=== PATIENT | female | born 1960 | race Caucasian/White ===

== ENCOUNTER 2021-01-23 15:45 | Inpatient (IN) | payer BC ==
[2021-01-23] VITALS (7 sets, daily range): BP systolic 82–142; BP diastolic 56–91; BMI 17.4
[~2021-01-23] VITALS: Ht 167.6 cm; Wt 49.6 kg
[2021-01-23 16:12] LABS: UDS - AMPHET NEGATIVE QUAL (NEGATIVE); UDS - BARB NEGATIVE QUAL (NEGATIVE); UDS - BENZO POSITIVE QUAL (NEGATIVE); UDS - COCAINE NEGATIVE QUAL (NEGATIVE); UDS - OPIATE POSITIVE QUAL (NEGATIVE); UDS - PCP NEGATIVE QUAL (NEGATIVE); UDS - THC NEGATIVE QUAL (NEGATIVE)
--- NOTE | 2021-01-23 16:12 | NUR ---
PT. CAME IN UNRESPONSIVE--WAS INTUBATED. 7.5 ETT, 24 @ LIP, A/C MODE, RATE OF 18, PEEP 5.0, 50% FIO2, VT 500
[2021-01-23 16:17] LABS: BILIRUBIN NEGATIVE (NEGATIVE); KETONE NEGATIVE (NEGATIVE); NITRITE NEGATIVE (NEGATIVE); UROBILINOGEN NORMAL mg/dL (< 2)
[2021-01-23 16:22] LABS: BASOPHILS 0.1 % (0-2); EOSINOPHILS 0.1 % (0-7); HEMATOCRIT 35.8 % (36.0-48.0); HEMOGLOBIN 12.2 g/dL (12-16); IMMATURE GRANULOCYTES 0.4 % (0-5); LYMPHOCYTE ABS# 0.48 10x3/uL (1.18-3.74); LYMPHOCYTES 7.1 % (15-50); MCH 33.4 pg (26.0-34.0); MCHC 34.1 g/dL (31.0-37.0); MCV 98.1 fL (80.0-100.0); MEAN PLATELET VOLUME 10.5 fL (7.4-10.4); MONOCYTES 7.7 % (2-11); NEUTROPHILS 84.6 % (40-80); PLATELET COUNT 149 10x3/uL (130-400); RBC 3.65 10x6/uL (4.00-5.40); RDW 12.7 % (11.5-14.5); WBC 6.8 10x3/uL (4.8-10.8)
[2021-01-23 16:37] LABS: ALBUMIN 3.7 g/dL (3.4-5.0); ANION GAP 13.9 mmol/L (8-16); BILIRUBIN - TOTAL 0.5 mg/dL (0.2-1.3); CALCIUM 8.4 mg/dL (8.5-10.1); CARBON DIOXIDE 24.2 mmol/L (21.0-32.0); CREATININE - SERUM 0.9 mg/dL (0.6-1.3); MAGNESIUM - SERUM 1.7 mg/dL (1.8-2.4); POTASSIUM - SERUM 3.1 mmol/L (3.5-5.1); PROTEIN - SERUM 6.2 g/dL (6.4-8.2)
--- NOTE | 2021-01-23 17:59 | NUR ---
PROPAFOL AND NS INFUSIONS STOPPED AT 1830 IN ER AND RESUMED IN ICU
[2021-01-23 19:53] LABS: APTT 22.5 SECONDS (22.8-39.4); INR 1.18 (0.85-1.17); PROTIME 13.9 SECONDS (11.6-15.0)
[2021-01-23 20:12] LABS: ACETAMINOPHEN 0.7 ug/mL (10.0-30.0); CKMB 1.7 U/L (0.0-3.6); CREATINE KINASE 47 UL (21-215); THYROID STIMULATING HORMONE 0.01 uIU/mL (0.36-3.74); TROPONIN-I < 0.017 ng/mL (0.000-0.060)
--- NOTE | 2021-01-23 20:21 | NUR ---
Received Pt from the ER, Pt on the vent and vitals are stable. The Pt assessment per flow sheet, will continue to monitor.
[2021-01-23 22:02] LABS: ANION GAP 11.7 mmol/L (8-16); CALCIUM 8.2 mg/dL (8.5-10.1); CARBON DIOXIDE 24.8 mmol/L (21.0-32.0); CREATININE - SERUM 0.9 mg/dL (0.6-1.3); MAGNESIUM - SERUM 1.6 mg/dL (1.8-2.4)
[2021-01-23 22:03] LABS: POTASSIUM - SERUM 2.5 mmol/L (3.5-5.1)
[2021-01-24] VITALS (23 sets, daily range): BP systolic 86–137; BP diastolic 54–100; Ht 167.6 cm; Wt 49.6 kg
[2021-01-24 04:37] LABS: BASOPHILS 0 % (0-2); EOSINOPHILS 0.1 % (0-7); HEMATOCRIT 30.5 % (36.0-48.0); HEMOGLOBIN 10.3 g/dL (12-16); IMMATURE GRANULOCYTES 0.2 % (0-5); LYMPHOCYTE ABS# 0.79 10x3/uL (1.18-3.74); LYMPHOCYTES 8.3 % (15-50); MCH 32.5 pg (26.0-34.0); MCHC 33.8 g/dL (31.0-37.0); MCV 96.2 fL (80.0-100.0); MEAN PLATELET VOLUME 10.5 fL (7.4-10.4); MONOCYTES 8.8 % (2-11); NEUTROPHIL ABS# 7.91 10x3/uL (1.56-6.13); NEUTROPHILS 82.6 % (40-80); RBC 3.17 10x6/uL (4.00-5.40); RDW 12.8 % (11.5-14.5)
[2021-01-24 04:39] LABS: PLATELET COUNT 180 10x3/uL (130-400); WBC 9.6 10x3/uL (4.8-10.8)
[2021-01-24 05:07] LABS: ALKALINE PHOSPHATASE 320 U/L (30-120); BILIRUBIN - TOTAL 0.45 mg/dL (0.2-1.3); CALC OSMOLALITY 288 mosm/kg (275-300); CALCIUM 7.8 mg/dL (8.5-10.1); CARBON DIOXIDE 22.9 mmol/L (21.0-32.0); CREATININE - SERUM 0.8 mg/dL (0.6-1.3); GLUCOSE 87 mg/dL (74-106); PHOSPHOROUS 2.9 mg/dL (2.5-4.9); PROTEIN - SERUM 4.9 g/dL (6.4-8.2); SODIUM 147 mmol/L (136-145); UREA NITROGEN 7 mg/dL (7-18); eGFR NON AFRICAN AMERICAN 77 mL/min (90-120)
[2021-01-24 05:23] LABS: ALBUMIN 2.7 g/dL (3.4-5.0); ALT (SGPT) 139 U/L (10-68); MAGNESIUM - SERUM 2.2 mg/dL (1.8-2.4); POTASSIUM - SERUM 4.1 mmol/L (3.5-5.1)
[2021-01-24 05:24] LABS: CHLORIDE - SERUM 117 mmol/L (98-107)
--- NOTE | 2021-01-24 08:25 | NUR ---
PT ON LIGHT SEDATION. OPENS EYES TO VOICE. DOES NOT FOLLOW COMMANDS. MOVEMENTS OF ARMS, LEGS AND HEAD NOTED. MOVEMENTS DO NOT APPEAR TO BE PURPOSEFULL. WILL CONTINUE TO MONITOR.
--- NOTE | 2021-01-24 08:58 | NUR ---
ANA MARIA MITCHELL PT'S SPOUSE STOPPED BY FOR FEW MINUTES BEFORE HEADING FOR WORK. HE WAS UNALBE TO PROVIDE MEDICATION LIST AT THIS TIME. WILL GET ONE TODAY AND BRING IT IN ON HIS NEXT VISIT.
--- NOTE | 2021-01-24 09:20 | NUR ---
SEDATION PAUSED AT THIS TIME. WILL CONTINUE TO MONITOR.
--- NOTE | 2021-01-24 10:15 | NUR ---
SEDATION TO REMAIN OFF AT THIS TIME PER DR. BRAMBILA. ORDERS RECEIVED FROM DR. BRAMBILA. FLUIDS CHANGED TO D5 NS AT 100ML/HR. PT OPEN EYES BUT DOES NOT FOLLOW COMMANDS. CONTINUES TO HAVE INTERMITTENT TWITCHING OF UPPER AND LOWER EXTREMITIES.
--- NOTE | 2021-01-24 10:24 | NUR ---
DR. LOPEZ PAGED AT THIS TIME. WAITING FOR CALL BACK.
--- NOTE | 2021-01-24 10:38 | NUR ---
DR. LOPEZ AWARE OF CONSULT. WANTS PT TO REMAIN OFF SEDATION AT THIS TIME.
[2021-01-24] MEDS ORDERED: VALIUM10 MG PO (11:04)
[2021-01-24] MEDS ORDERED: SEROQUEL100 MG PO (11:06)
[2021-01-24] MEDS ORDERED: AMBIEN10 MG PO (11:06)
[2021-01-24] MEDS ORDERED: RISPERDAL1 MG PO (11:07)
[2021-01-24] MEDS ORDERED: CYMBALTA60 MG PO (11:07)
[2021-01-24] MEDS ORDERED: ARMOUR THYROID120 MG PO (11:10)
[2021-01-24] MEDS ORDERED: DILAUDID4 MG PO (11:11)
--- NOTE | 2021-01-24 11:12 | NUR ---
LEXA ON [facility] CALLED AND MEDICATION LIST UPDATED.
--- NOTE | 2021-01-24 11:46 | NUR ---
BLOODY DRAINAGE NOTED COMING OUT OF MOUTH. APPEARS THAT PT MIGHT HAVE BITTEN HER TONGUE. ORAL SUCTION PROVIDED. SCANT AMOUNT OF BLOOD SUCTIONED. OGT DRAINAGE CONTINUE TO BE DARK GREEN.
--- NOTE | 2021-01-24 11:49 | NUR ---
DR. SANTIAGO PAGED AT THIS TIME. WAITING FOR CALL BACK.
--- NOTE | 2021-01-24 12:17 | NUR ---
DR. DUNLAP PAGED AGAIN AT THIS TIME.
[2021-01-24 12:38] LABS: FERRITIN 201 ng/mL (3-244)
[2021-01-24] MEDS ORDERED: BUPROPION XL300 MG PO (15:04)
--- NOTE | 2021-01-24 17:40 | NUR ---
PT WOKE UP AFTER ATIVAN DOSE. GOT VERY AGITATED AFTER LAB ATTEMPTED TO DRAW HER BLOOD. PT PULLING ON ARMS. LEGS JERKING ALL OVER THE PLACE. APPEARS TO BE AGITATED OR COULD BE SEIZURE LIKE ACTIVITY. DOES NOT FOLLOW COMMANDS. PULLED OUT PIV. DR. BRAMBILA NOTIFIED. WANTED TO CHECK WITH DR. LOPEZ BEFORE RESTARTING PROPOFOL FOR SEDATION. SPOKE WITH DR. LOPEZ. OKAY TO START PROPOFOL. WANTS SEDATION TO BE TURNED OFF 4HRS BEFORE EEG IN COMPLETED.
--- NOTE | 2021-01-24 20:59 | NUR ---
PT ASSESSED AND HS MEDS GIVEN. PT INTUBATED AND SEDATED ON VENT, 7.5ETT 23@ LIP, OGT TO LIS WITH BROWN/BILE GASTRIC OUTPUT. 22G PIV TO RIGHT WRIST WITH D5NS @100ML/HR AND PROPOFOL INFUSING. PT RESTLESS AT SHIFT CHANGE AND PROPOFOL TITRATED TO 45 MCG/KG/MIN, PT OPENS EYES TO VOICE AND TOUCH, [place], DOES NOT FOLLOW COMMANDS AT THIS TIME. BILAT SOFT WRIST RESTRAINTS IN PLACE AND ASSESSED, RADIAL PULSES STRONG AND RESTRAINTS SECURED. PERSAUD PRESENT WITH DECREASED UOP AND CLEAR YELLOW/SHA URINE. CURTAIN OPEN, WILL CONT TO ASSESS.
[2021-01-25] VITALS (24 sets, daily range): BP systolic 127–176; BP diastolic 77–113
--- NOTE | 2021-01-25 01:43 | NUR ---
CHG AND SOAP AND WATER BED BATH GIVEN, HAIR WASHED, ORAL CARE PREFORMED, FULL LINEN CHANGE AND GOWN CHANGED. PT RESTLESS DURING BATH, AFTER BATH COMPLETED PT CALMED AND PROPOFOL DECREASED TO 35 MCG/KG/MIN, WILL CONT TO TITRATE AND TURN OFF PROPOFOL BY 0400.
--- NOTE | 2021-01-25 03:53 | NUR ---
propofol stopped per MD instruction for EEG today, pt restless at times, restraints secured, will cont to monitor.
[2021-01-25 04:55] LABS: BASOPHILS 0.1 % (0-2); EOSINOPHILS 0.1 % (0-7); HEMOGLOBIN 11.9 g/dL (12-16); IMMATURE GRANULOCYTES 0.3 % (0-5); LYMPHOCYTE ABS# 0.83 10x3/uL (1.18-3.74); LYMPHOCYTES 6.2 % (15-50); MCH 32.6 pg (26.0-34.0); MCHC 33.1 g/dL (31.0-37.0); MEAN PLATELET VOLUME 11.3 fL (7.4-10.4); MONOCYTES 8.3 % (2-11); NEUTROPHIL ABS# 11.44 10x3/uL (1.56-6.13); PLATELET COUNT 202 10x3/uL (130-400); RBC 3.65 10x6/uL (4.00-5.40); RDW 13.4 % (11.5-14.5)
[2021-01-25 05:02] LABS: MCV 98.6 fL (80.0-100.0); WBC 13.5 10x3/uL (4.8-10.8)
[2021-01-25 05:19] LABS: ALBUMIN 2.9 g/dL (3.4-5.0); ALKALINE PHOSPHATASE 324 U/L (30-120); ALT (SGPT) 113 U/L (10-68); BILIRUBIN - DIRECT 0.17 mg/dL (0.00-0.30); BILIRUBIN - INDIRECT 0.27 mg/dL (0.00-1.00); BILIRUBIN - TOTAL 0.44 mg/dL (0.2-1.3); CALC OSMOLALITY 286 mosm/kg (275-300); CALCIUM 8.7 mg/dL (8.5-10.1); CARBON DIOXIDE 22.4 mmol/L (21.0-32.0); CHLORIDE - SERUM 111 mmol/L (98-107); CREATININE - SERUM 0.8 mg/dL (0.6-1.3); GLUCOSE 97 mg/dL (74-106); MAGNESIUM - SERUM 1.8 mg/dL (1.8-2.4); POTASSIUM - SERUM 3.7 mmol/L (3.5-5.1); PROTEIN - SERUM 5.7 g/dL (6.4-8.2); SODIUM 145 mmol/L (136-145); TROPONIN-I < 0.017 ng/mL (0.000-0.060); UREA NITROGEN 8 mg/dL (7-18); eGFR NON AFRICAN AMERICAN 77 mL/min (90-120)
--- NOTE | 2021-01-25 05:28 | NUR ---
PT KICKING LEGS AND THROWING THEM OFF BED, ATTEMPTING TO SIT UP IN BED, PULLING AGAINST WRIST RESTRAINTS, OPENING EYES, PT DIFFICULT TO CALM DOWN, DOES NOT FOLLOW COMMANDS, PRN ATIVAN GIVEN, WILL CONT TO ASSESS.
--- NOTE | 2021-01-25 07:22 | NUR ---
CURRENCY MACHINE OPERATOR ATTEMPTED TO PERFORM EEG. PT OFF SEDATION. VERY AGITATED. KICKING LEGS, PULLING ON RESTRAINTS. FOLLOWED SIMPLE COMMANDS BUT WOULD NOT STAY STILL WHEN CURRENCY MACHINE OPERATOR ATTEMPTED TO PLACE WIRES ON HER HEAD. SHE KEPT MOVING AND PULLING HER HEAD AWAY FROM TECH. DR. LOPEZ NOTIFIED. EEG CANCELLED SINCE PT DID FOLLOW SOME COMMANDS. SEDATION TURNED BACK ON PER ORDER. WILL CONTINUE TO MONITOR.
--- NOTE | 2021-01-25 07:38 | NUR ---
CALL RECEIVED FROM SPOUSE. PASSCODE VERIFIED. WAS TOLD EEG WAS CANCELLED DO TO PT BEING AGITATED. WAS ALSO TOLD THAT SHE DID FOLLOW SOME COMMANDS. SHE IS BACK ON SEDATION AT THIS TIME. WANTED TO KNOW WHEN SHE WOULD COME OFF THE VENTILATOR. WAS TOLD THAT IT ALL THE DEPENDS ON HOW SHE DOES ONCE CPAP TRIALS ARE STARTED. WAITING ON CLIENT PROJECT COORDINATOR TO ROUND. WILL CALL BACK AROUND 10AM OR SO TO GET ANOTHER UPDATE.
--- NOTE | 2021-01-25 09:51 | NUR ---
PT ON CPAP TRIAL AT THIS TIME. ON 35MCG/KG/MIN PROPOFOL FOR SEDATION. PT HAS TURNED SIDE WAYS IN BED. KICKING THE BEDSIDE RAILS. WILL CONTINUE TO MONITOR.
--- NOTE | 2021-01-25 10:08 | NUR ---
PS TRIAL 07/16 @0930 RSBI 27, PT TOLERATING WELL
[2021-01-25 10:12] LABS: HEPATITIS C ANTIBODY <0.1 S/CO RAT (0.0-0.9)
--- NOTE | 2021-01-25 11:01 | NUR ---
PT EXTUBATED AT 1045. PLACED ON 2L O2 VIA NC. SEDATION WAS TURNED OFF BEFORE EXTUBATION. PT AGITATED. PULLING ON RESTRAINTS. KICKING LEGS UP IN THE AIR. ATTEMPTED TO REORIENT. PT STARTED CRYING AND SAYING NO, NO. PARTIAL LINEN CHANGE PROVIDED. PULLED UP IN BED. ORAL SUCTION PROVIDED. PT WIGGLED HER SELF BACK SIDE WAYS ON THE BED. UNABLE TO STRAIGHTEN IN BED AT THIS TIME DUE TO PT BEING AGITATED. WILL CONTINUE TO MONITOR.
--- NOTE | 2021-01-25 12:30 | NUR ---
PT COMBATIVE, NON-COMPLIANT WITH CARE. RISK FOR SELF HARM R/T PSYCOSIS STATE. GURESKY CONSULTED AND AWAITING FUTHER INTSTRUCTIONS. WILL CONT TO MONITOR PT AND KEEP PT SAFE.
--- NOTE | 2021-01-25 12:47 | NUR ---
Nutrition Reassessment/Follow-up: Extubated this AM. ST eval pending. Wt: 111.3# (01/25); 108# (01/23)BMI: 18.0 (underweight) Labs noted: Alb 2.9 Meds noted: Florajen, Protonix, D5NS @ 100, electrolyte protocol Est needs: 2228-9386 kcal/day (30-35 kcal/kg) 50-60 g protein/day (1-1.2 g/kg) 8648-1490 mL fluid/day (1 mL/kcal) or per MD -Rec advance diet as tolerated as medically feasible pending ST eval; if unable to advance diet within 24 hrs, rec consider nutrition support. -RD follow-up: 01/28
--- NOTE | 2021-01-25 14:50 | NUR ---
ADMINISTER ORDERS PER GUHARISHKY AND PT CONT TO HAVE EPISODES OF PSYCOSIS STATE WITH YELLING, SCREAMING, COMBATIVE, AGITATION, AND AGGRESSION. WILL CONT TO MONITOR.
--- NOTE | 2021-01-25 19:10 | NUR ---
REPORT REC'D AND CARE ASSUMED, REC'D PT RESTLESS IN BED AND TALKING WITH NO ONE IN ROOM, DOES NOT FOLLOW COMMANDS OR ANSWER DIRECT QUESTIONS, FREQUENT OUTBURSTS OF CRYING, ATTEMPTS CALM UNSUCCESSFUL, LEFT FA PIV SL, RIGHT ARM PIV WITH D5NS @ 75CC/HR, PERSAUD PATENT DRAINING DARK YELLOW URINE, MULTILPLE AREAS OF BRUISING, SCABS, AND SORES TO BILAT ARMS AND LEGS, BILAT WRIST RESTRAINTS INTACT AT THIS TIME, PPP, SR UP X 2, O2 @ 2LITERS VIA NC, PRODUCTIVE COUGH NOTED, BED IN LOW POSITION, VISIBLE TO NURSES STATION.
[2021-01-26] VITALS (16 sets, daily range): BP systolic 133–157; BP diastolic 76–99
--- NOTE | 2021-01-26 01:30 | NUR ---
PT MORE RESPONSIVE, ORIENTED TO TIME AND PERSON, THINKS SHE IS AT THE [facility], ATTEMPTED TO REORIENT AT THIS TIME, THANKS ME FOR COVERING HER UP AND STATES " I AM FREEZING", BP SLIGHTLY IMPROVED, WILL CONT TO MONITOR FOR CHANGES.
[2021-01-26 04:29] LABS: BASOPHILS 0.1 % (0-2); EOSINOPHILS 0.9 % (0-7); HEMATOCRIT 31.7 % (36.0-48.0); HEMOGLOBIN 10.7 g/dL (12-16); IMMATURE GRANULOCYTES 0.2 % (0-5); LYMPHOCYTE ABS# 1.19 10x3/uL (1.18-3.74); MCH 32.4 pg (26.0-34.0); MCHC 33.8 g/dL (31.0-37.0); MEAN PLATELET VOLUME 10.1 fL (7.4-10.4); MONOCYTES 8.4 % (2-11); NEUTROPHIL ABS# 7.78 10x3/uL (1.56-6.13); NEUTROPHILS 78.4 % (40-80); PLATELET COUNT 193 10x3/uL (130-400)
[2021-01-26 04:30] LABS: MCV 96.1 fL (80.0-100.0); WBC 9.9 10x3/uL (4.8-10.8)
[2021-01-26 04:56] LABS: ALBUMIN 2.6 g/dL (3.4-5.0); ALKALINE PHOSPHATASE 245 U/L (30-120); BILIRUBIN - TOTAL 0.56 mg/dL (0.2-1.3); CALC OSMOLALITY 280 mosm/kg (275-300); CALCIUM 8.3 mg/dL (8.5-10.1); CARBON DIOXIDE 26.5 mmol/L (21.0-32.0); CHLORIDE - SERUM 109 mmol/L (98-107); CREATININE - SERUM 0.7 mg/dL (0.6-1.3); GLUCOSE 97 mg/dL (74-106); MAGNESIUM - SERUM 1.6 mg/dL (1.8-2.4); PHOSPHOROUS 3.3 mg/dL (2.5-4.9); POTASSIUM - SERUM 3.2 mmol/L (3.5-5.1); PROTEIN - SERUM 5.3 g/dL (6.4-8.2); SODIUM 142 mmol/L (136-145); UREA NITROGEN 6 mg/dL (7-18); eGFR NON AFRICAN AMERICAN 90 mL/min (90-120)
[2021-01-26 04:57] LABS: ALT (SGPT) 77 U/L (10-68)
--- NOTE | 2021-01-26 15:08 | NUR ---
PT OOB WITH PT UP TO CHAIR. ST EVAL COMPLETE. BED ALARM ON. PT IS NOT PULLING AT LINES AND IS COOPERATIVE.
[2021-01-26 18:08] LABS: ANA REFLEX - DIRECT Negative (Negative)
--- NOTE | 2021-01-26 19:30 | NUR ---
RECEIVED BEDSDIE REPORT. ROUNDING COMPLETE. PATIENT IS ALERT AND ORIENTED, RESTING COMFORTABLY IN BED. RESPIRATIONS ARE EVEN AND UNLABORED. NO S/S OF DISTRESS. NO C/O PAIN. CALL LIGHT WITHIN REACH. NEEDS MET. WILL CPOC.
[2021-01-27 03:19] VITALS: BP 138/82
[2021-01-27 04:59] LABS: BASOPHILS 0 % (0-2); EOSINOPHILS 1.6 % (0-7); HEMATOCRIT 30.3 % (36.0-48.0); HEMOGLOBIN 10.1 g/dL (12-16); IMMATURE GRANULOCYTES 0.1 % (0-5); LYMPHOCYTE ABS# 1.15 10x3/uL (1.18-3.74); MCH 32.4 pg (26.0-34.0); MCHC 33.3 g/dL (31.0-37.0); MCV 97.1 fL (80.0-100.0); MEAN PLATELET VOLUME 10.6 fL (7.4-10.4); MONOCYTES 8.6 % (2-11); NEUTROPHIL ABS# 5.74 10x3/uL (1.56-6.13); NEUTROPHILS 74.7 % (40-80); PLATELET COUNT 208 10x3/uL (130-400); RBC 3.12 10x6/uL (4.00-5.40); RDW 13.3 % (11.5-14.5); WBC 7.7 10x3/uL (4.8-10.8)
[2021-01-27 05:17] LABS: ALBUMIN 2.6 g/dL (3.4-5.0); ALKALINE PHOSPHATASE 213 U/L (30-120); ALT (SGPT) 62 U/L (10-68); BILIRUBIN - TOTAL 0.35 mg/dL (0.2-1.3); CALCIUM 8.4 mg/dL (8.5-10.1); CHLORIDE - SERUM 111 mmol/L (98-107); CREATININE - SERUM 0.8 mg/dL (0.6-1.3); GLUCOSE 112 mg/dL (74-106); MAGNESIUM - SERUM 1.9 mg/dL (1.8-2.4); PROTEIN - SERUM 5.2 g/dL (6.4-8.2); SODIUM 142 mmol/L (136-145); eGFR NON AFRICAN AMERICAN 77 mL/min (90-120)
[2021-01-27 05:19] LABS: CALC OSMOLALITY 280 mosm/kg (275-300); POTASSIUM - SERUM 3.3 mmol/L (3.5-5.1); UREA NITROGEN 4 mg/dL (7-18)
--- NOTE | 2021-01-27 07:20 | NUR ---
RECIEVE REPORT. ALERT AND ORIENTED X4. DENIES ANY NEEDS. CONTINUE PLAN OF CARE AND SAFETY PRECAUTIONS.
[2021-01-27 09:24] VITALS: BP 152/99
[2021-01-27 13:14] VITALS: BP 152/100
--- NOTE | 2021-01-27 17:00 | NUR ---
ALERT AND ORIENTED X4. SITTING UP IN BED. SPOUSE AT BEDSIDE. DENIES ANY NEEDS. CONTINUE PLAN OF CARE AND SAFETY PRECAUTIONS.
[2021-01-27 17:14] VITALS: BP 153/91
--- NOTE | 2021-01-27 19:19 | NUR ---
RECEIVED BEDSIDE REPORT. ROUNDING COMPLETE. PATIENT IS ALERT AND ORIENTED, RESTING COMFORTABLY IN BED. RESPIRATIONS ARE EVEN AND UNLABORED. NO S/S OF DISTRESS. NO C/O PAIN. CALL LIGHT WITHIN REACH. [place] [facility].
[2021-01-27 20:34] VITALS: BP 145/93
[2021-01-28 03:19] VITALS: BP 161/97
--- NOTE | 2021-01-28 07:20 | NUR ---
RECIEVE REPORT. ALERT AND ORIENTED X4. SITTING UP IN BED. SINUS RHYTHM 91 ON TELEMETRY. DENIES ANY NEEDS. CONTINUE PLAN OF CARE AND SAFETY PRECAUTIONS.
[2021-01-28 07:52] LABS: BASOPHILS 0.1 % (0-2); EOSINOPHILS 1.4 % (0-7); HEMATOCRIT 32.9 % (36.0-48.0); HEMOGLOBIN 11.2 g/dL (12-16); IMMATURE GRANULOCYTES 0.1 % (0-5); LYMPHOCYTE ABS# 1.05 10x3/uL (1.18-3.74); LYMPHOCYTES 14.4 % (15-50); MCH 32.6 pg (26.0-34.0); MCV 95.6 fL (80.0-100.0); MEAN PLATELET VOLUME 10.5 fL (7.4-10.4); MONOCYTES 8.5 % (2-11); NEUTROPHILS 75.5 % (40-80); RBC 3.44 10x6/uL (4.00-5.40); RDW 13.1 % (11.5-14.5); WBC 7.3 10x3/uL (4.8-10.8)
[2021-01-28 08:06] LABS: PLATELET COUNT 264 10x3/uL (130-400)
[2021-01-28 08:13] LABS: ALBUMIN 2.9 g/dL (3.4-5.0); ALKALINE PHOSPHATASE 226 U/L (30-120); ALT (SGPT) 68 U/L (10-68); BILIRUBIN - TOTAL 0.37 mg/dL (0.2-1.3); CALCIUM 8.5 mg/dL (8.5-10.1); CARBON DIOXIDE 23.4 mmol/L (21.0-32.0); CHLORIDE - SERUM 105 mmol/L (98-107); CREATININE - SERUM 0.7 mg/dL (0.6-1.3); GLUCOSE 98 mg/dL (74-106); MAGNESIUM - SERUM 1.6 mg/dL (1.8-2.4); PHOSPHOROUS 3.5 mg/dL (2.5-4.9); POTASSIUM - SERUM 3.6 mmol/L (3.5-5.1); PROTEIN - SERUM 5.4 g/dL (6.4-8.2); SODIUM 141 mmol/L (136-145); eGFR NON AFRICAN AMERICAN 90 mL/min (90-120)
[2021-01-28 08:20] LABS: CALC OSMOLALITY 276 mosm/kg (275-300); UREA NITROGEN 2 mg/dL (7-18)
[2021-01-28 08:29] VITALS: BP 170/100
--- NOTE | 2021-01-28 10:05 | NUR ---
PATIENT ABLE TO GET UP TO BEDSIDE AND STAND BY HERSELF. PATIENT WALKED 250 FEET WITH CGA WHILE PUSHING IV POLE.
[2021-01-28 12:41] VITALS: BP 154/98
--- NOTE | 2021-01-28 14:39 | NUR ---
Nutrition Reassessment/Follow-up: Pt sitting up in chair at time of visit. Observed not much of breakfast tray eaten but pt states that she does not care much for breakfast. Reports normal appetite. Denies N/V/C/D, chewing/swallowing difficulties. ST following. Agreed to try Ensure at lunch today. Diet: Regular, Mech Soft PO intake: 40% avg x 5 meals (01/26-01/27) Wt: 109.1# (01/26); 108# (01/23) Labs noted: Mg 1.6, Alb 2.9 Meds noted: Florajen, Protonix, D5NS @ 75, electrolyte protocol Est needs: 8170-3417 kcal/day (30-35 kcal/kg) 50-60 g protein/day (1-1.2 g/kg) 9368-4868 mL fluid/day (1 mL/kcal) -Encourage PO intake and honor food preferences within diet restrictions. -Ensure sent with lunch today for pt trial. -Need new wt. -RD will follow up within 3-4 days if pt still admitted.
--- NOTE | 2021-01-28 15:18 | NUR ---
ALERT AND ORIENTED X4. SITTING UP ON SIDE OF BED. SPOUSE AT BEDSIDE. CALL CORRECTION REGARDING DISCHARGE PLANNING. MESSAGE LEFT WITH COLTEN BURGESS. CONTINUE PLAN OF CARE AND SAFETY PRECAUTIONS.
[2021-01-28] MEDS ORDERED: LISINOPRIL10 MG PO (15:57)
--- NOTE | 2021-01-28 17:26 | NUR ---
ALERT AND ORIENTED X4. SITTING UP IN CHAIR. DC RT FA IV TIP INTACT. DISCHARGE INSTRUCTIONS GIVEN VERBALLY AND WRITTEN. DISCHARGE PAPERS SIGNED ON CHART. ESCORT TO RIDE VIE WHEELCHAIR. REMAINS FREE FROM INJURY.
[2021-01-29 15:11] LABS: MITOCHONDRIAL ANTIBODY <20.0 Units (0.0-20.0); SMOOTH MUSCLE ABS (ACTIN) 4 Units (0-19)
--- NOTE | 2021-01-29 16:04 | PN ---
PATIENT:DIMITRI MITCHELL MEDICAL RECORD: [id number] LOCATION:[address] ADMISSION DATE: 01/23/21 PROGRESS NOTE DATE OF SERVICE: 01/28/2021 SUBJECTIVE: The patient's case was discussed with staff. She has no new complaint. OBJECTIVE: The patient denies that she would seek to harm herself or others. She said that was never her intention and that this overdose was accidental. She also says she does not believe she has a substance abuse problem. She has a euthymic mood, is fully oriented and cooperative. She has no history of psychiatric difficulties and no history of hurting herself in the past. ASSESSMENT: Accidental overdose. PLAN: I except the patient's explanation that this was not deliberate. I feel comfortable that she did not try to harm herself consciously and deliberately. I am less convinced that she does not have a substance abuse problem, but she is denying it. I do not think it is appropriate for her to be prescribed narcotics or benzodiazepines and she does not feel that she needs outpatient mental health care. Once she is medically stabilized, she can be discharged home with no psychiatric followup. TRANSINT:[id number] Voice Confirmation ID: [id number] DOCUMENT ID: [id number] AMAN MERIDA MD at 1604 CC: [id number] DICTATION DATE: 01/28/211658 CANVAS BASTER JUMPBASTING: 01/28/212229 DIS IN 01/28/21 [facility] [address] [id number]
--- NOTE | 2021-01-29 16:51 | MORECARE ---
CASE MANAGEMENT DISCHARGE SUMMARY PATIENT: DIMITRI MITCHELL UNIT: [id number] ADM DATE: 01/23/21 AGE: 60 : 60 SEX: F ROOM/BED: D.2138 AUTHOR: JACQUE,DOC PHYSICIAN: REFERRING PHYSICIAN: ULISSES LOCKWOOD MD DATE OF SERVICE: 01/29/21 Case Management Discharge Planning Summary DCP REVIEW SUMMARY ANTICIPATED D/C DATE: EXPECTED LOS : CASE STATUS: DCP Complete INITIAL REVIEW: 01/23/2021 INITIAL REVIEWER: Gunjan Sam FINAL DISCHARGE DISPOSITION: : FINAL REVIEWER: Gunjan Sam FINAL REVIEW DATE: DCP [employer] Questions [employer] Answers QUESTION: ANSWER : PATIENT: DIMITRI MITCHELL ENCOUNTER: [id number] MEDICAL RECORD#: [id number] ADMISSION DATE: 01/23/2021 DISCHARGE DATE: 01/28/2021 ATTENDING MD: ULISSES LEMONS : AGE: 60 MARITAL STATUS: M DC PLAN ID: [id number] FACILITY: [facility] PRINTED ON: 01/29/21 16:51 CT All edits/amendments must be made on the electronic document DICTATION DATE: 01/29/211650 ADMINISTRATIVE RESOURCES ASSOCIATE: DM 01/29/211650 RPT#: [id number] DC DATE:01/28/21 STATUS: DIS IN [facility] [address] [place] [address] END OF REPORT
== END 2021-01-28 17:27 | disposition home or self-care (01) | DRG 917 ==
LOC: D.ER 15:45 → D.M2 16:28 → D.ICU 16:28 → D.M2 01-26 18:57
PROVIDERS: Family Medicine; Internal Medicine Gastroenterology; Internal Medicine Pulmonary Disease; ADMIT Emergency Medicine; ATTEND Emergency Medicine
PROC: 5A1935Z Respiratory Ventilation, Less than 24 Consecutive Hours (ICD-10-PCS; principal; 2021-01-23)
PROC: 0BH17EZ Insertion of Endotracheal Airway into Trachea, Via Natural or Artificial Opening (ICD-10-PCS; 2021-01-23)
DX: T42.4X1A Poisoning by benzodiazepines, accidental (unintentional), initial encounter (principal); J96.90 Respiratory failure, unspecified, unspecified whether with hypoxia or hypercapnia; G92 Toxic encephalopathy; J18.9 Pneumonia, unspecified organism; E83.42 Hypomagnesemia; E87.6 Hypokalemia; E03.9 Hypothyroidism, unspecified; D64.9 Anemia, unspecified; R74.01 Elevation of levels of liver transaminase levels; I95.9 Hypotension, unspecified